=== PATIENT | male | born 1995 | race Caucasian/White ===

== ENCOUNTER 2022-07-20 08:59 | Outpatient (CLI) | payer OTHER, SELFPAY ==
[2022-07-20 19:27] LABS: Basophils Percent Auto 0.4 % (0.2-1.2); Eosinophils Absolute Auto 0.3 K/mm3 (0-0.3); Eosinophils Percent Auto 3.7 % (0-4.4); Hematocrit 46.1 % (42.0-52.0); Hemoglobin 14.7 g/dL (14.0-18.0); Immature Granulocyte Absolute 0.01 K/mm3 (0.00-0.031); Immature Granulocyte Percent A 0.1 % (0-0.5); Lymphocytes Absolute Auto 2.09 K/mm3 (0.9-3.2); Lymphocytes Percent Auto 31.1 % (18.3-44.2); Mean Corpuscular HGB Conc 31.9 g/dl (32-36); Mean Corpuscular Hemoglobin 30.9 pg (26-34); Mean Corpuscular Volume 96.8 fl (80-100); Monocytes Absolute Auto 0.5 K/mm3 (0.1-0.6); Neutrophils Absolute Auto 3.8 K/mm3 (1.3-6.7); Neutrophils Percent Auto 56.7 % (45.5-73.1); Platelet Count Result 357 k/mm3 (150-375); Red Blood Count 4.76 M/mm3 (4.6-6.20); Red Cell Distribution Width 12.9 % (11.5-14.5); White Blood Count 6.7 K/mm3 (4.5-10.0)
[2022-07-20 19:59] LABS: Alanine Aminotransferase 32 U/L (6-50); Albumin Level 4.8 g/dL (3.5-5.1); Alkaline Phosphatase 74 U/L (38-126); Anion Gap 12 mmol/L (8-16); Aspartate Amino Transferase 79 U/L (17-59); Bilirubin,Total 0.6 mg/dL (0.2-1.3); Blood Urea Nitrogen 12 mg/dL (9-20); Calcium 9.7 mg/dL (8.4-10.2); Carbon Dioxide 29 mmol/L (22-30); Chloride 98 mmol/L (98-107); Cholesterol 158 mg/dL (0-200); Estimated Glomerular Filt Rate > 60; Glucose 92 mg/dL (65-110); HDL Direct 45 mg/dL; Sodium 139 mmol/L (137-145); Triglycerides 87 mg/dL (<150)
[2022-07-20 20:11] LABS: LDL Cholesterol Direct 94 mg/dL
[2022-07-20 20:18] LABS: Appearance Urine Clear (Clear); Bilirubin Urine Negative (Negative); Blood Urine Negative (Negative); Color Urine Yellow (Yellow); Glucose Urine UA Negative (Negative); Ketones Urine Negative (Negative); Leukocyte Esterase Ur Negative LEU/UL (NEGATIVE); Nitrate Urine Negative (Negative); Protein Urine Negative (Negative); Specific Grav Ur 1.015 (1.001-1.035); Urobilinogen Urine 0.2 mg/dL (<2.0)
[2022-07-20 20:19] LABS: Add Urine Microscopic? NO
[2022-07-20 20:26] LABS: Prostate Specific Antigen 0.5 ng/mL (< OR = 4.0)
== END 2022-07-20 09:00 | disposition home or self-care (01) ==
PROVIDERS: PCP Family Medicine; Visit Provider Family Medicine
DX: Z00.00 Encounter for general adult medical examination without abnormal findings (principal); R35.0 Frequency of micturition
CPT/HCPCS: 36415; 80053; 80061; 81003; 84153; 85025; 87086; 87491; 87591; 87661; 87808; G0103

== ENCOUNTER 2025-05-08 14:50 | Outpatient (CLI) | payer OTHER, SELFPAY ==
--- NOTE | ~2025-05-08 | XR_ITS ---
XR finger 1st RT min 2V 05/08/2025 15:03 Indication: Right thumb deformity Procedure: 4 views right first finger Comparison: No prior studies for comparison. 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 There is mild ventral subluxation of the proximal phalanx. Moderate overlying soft tissue swelling. No acute fracture. No foreign bodies. 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 Reviewed, dictated and finalized at location A. Impression: 1: Mild osteoarthritis right first metacarpal phalangeal joint with subtle vent ral subluxation.
--- OUTSIDE RECORDS SUMMARY | 2025-05-08 15:21 | XMS_ITS | Clinical Summary ---
Author Organization [facility] Address [address] [place] [address] Phone Care Team Providers Care Hr Recruiter Name Role Phone Provider, None Primary Care Provider Unavailabl e Allergies No known active allergies Medications No known medications Immunizations Immunization Administration Dates Next Due RABIES - IM Fibroblast Culture Vaccine 7 Social History Tobacco Use Types Packs/Day Years Used Date Smoking Tobacco: Every Day Cigarettes Smokeless Tobacco: Never Alcohol Use Standard Drinks/Week Comments Yes 0 (1 standard drink = 0.6 oz pur e alcohol) Occasionally Sex and Gender Information Value Date Recorded Sex Assigned at Not on file Legal Sex Male 7:22 PM CDT Gender Identity Not on file Sexual Orientation Not on file Last Filed Vital Signs Vital Sign Reading Time Taken Comments Blood Pressure 140/64 09/29/2018 6:36 AM DISPLAY TRIMMER Pulse 95 09/29/2018 7:24 AM DISPLAY TRIMMER Temperature 36 C (96.8 F) 09/29/2018 6:36 AM DISPLAY TRIMMER Respiratory Rate 16 09/29/2018 7:24 AM DISPLAY TRIMMER Oxygen Saturation 100% 09/29/2018 7:24 AM DISPLAY TRIMMER Inhaled Oxygen Concentration - - Weight 79.4 kg (175 lb) 09/29/2018 6:36 AM DISPLAY TRIMMER Height 182.9 cm (6') 09/29/2018 6:36 AM DISPLAY TRIMMER Body Mass Index 23.73 09/29/2018 6:36 AM DISPLAY TRIMMER Plan of Treatment Not on file Insurance MEDICAID [place] MEDICAID [employer] Care Teams Hr Recruiter Relationship Specialty Start Date End Date Provider, None [place] PCP - General 02/16/17
== END 2025-05-08 14:51 | disposition home or self-care (01) ==
LOC: ANHBWCIMG 14:50
PROVIDERS: PCP Nurse Practitioner Adult Health; Visit Provider Nurse Practitioner Adult Health
DX: M20.001 Unspecified deformity of right finger(s) (principal)
CPT/HCPCS: 73140

== ENCOUNTER 2025-06-03 14:47 | Outpatient (CLI) | payer OTHER, SELFPAY ==
--- NOTE | ~2025-06-03 | US_ITS ---
US scrotum doppler INDICATION: Male erectile dysfunction TECHNIQUE: Testicular sonogram utilizing grayscale and color Doppler FINDINGS: The testes are normal in size and appearance. No focal lesions are seen. The right testes measures 4.6 x 3.1 x 2.3 cm centimeters, and the left testis measures 5 x 3.1 x 2.5 cm cm. There is normal vascular flow to both testes. The right and left epididymides appear normal. There is no varicocele or hydrocele. IMPRESSION: 1. NORMAL TESTICULAR ULTRASOUND. Reviewed, dictated and finalized at location O.
== END 2025-06-03 14:48 | disposition home or self-care (01) ==
PROVIDERS: PCP Nurse Practitioner Adult Health; Visit Provider Nurse Practitioner Adult Health
DX: N52.9 Male erectile dysfunction, unspecified (principal); N50.82 Scrotal pain
CPT/HCPCS: 76870; 93976